=== PATIENT | female | born 1950 | race Caucasian/White ===

== ENCOUNTER 2019-06-11 10:52 | Emergency (ER) | payer MEDICARE, MEDICAID ==
[~2019-06-11] VITALS: Ht 162.6 cm; Wt 89.1 kg
[~2019-06-11 10:52] MED LIST: ASPI325T17 PO; LISI-170 PO; METF850T10 PO; PREG50CA PO
[2019-06-11 11:16] VITALS: BP 159/91
[2019-06-11] MEDS ORDERED: INSULIN (11:26)
[2019-06-11] MEDS ORDERED: TRULICITY (11:26)
[2019-06-11] MEDS ORDERED: KETOROLAC 30 MG/1 ML IM ONE (11:30)
[2019-06-11] MEDS ORDERED: KETOROLAC 30 MG/1 ML ONE (11:32)
== END 2019-06-11 12:35 | disposition home or self-care (01) ==
LOC: ED 12:10
DX: M54.42 Lumbago with sciatica, left side (principal); E11.9 Type 2 diabetes mellitus without complications; Z87.891 Personal history of nicotine dependence
CPT/HCPCS: 72110; 96372; 99283; J1885

== ENCOUNTER → 2019-12-25 | Outpatient (CLI) | payer MEDICARE, MEDICAID ==
[~2019-12-25] MED LIST changes: +INSULIN; +TRULICITY
== END | disposition home or self-care (01) ==
LOC: CARD 08:17
PROVIDERS: ATTEND Family Medicine
DX: R06.02 Shortness of breath (principal); Z87.891 Personal history of nicotine dependence
CPT/HCPCS: 94060; 94726; 94729